=== PATIENT | male | born 1955 | race Caucasian/White ===

== ENCOUNTER 2025-03-12 08:00 | Day surgery (SDC) | payer MEDICARE, OTHER, SELFPAY ==
[2025-03-09 12:36] VITALS: BMI 30.1
[2025-03-12] VITALS (10 sets, daily range): BP systolic 113–149; BP diastolic 75–95; PULSE 68–79; RESP 13–18; TEMP 36.2–36.4; O2SAT 95–99; BMI 28.7
[2025-03-12] MEDS: SODIUM CHLORIDE 0.9% 500 ML 500 ML 20 ML IV (10:12)
[2025-03-12] MEDS: MIDAZOLAM INJ 1 MG/ML VIAL 2 ML (ASD USE ONLY) 2 MG IV (10:18)
[2025-03-12] MEDS: DiphenhydrAMINE INJ 50 MG/ML VIAL 25 MG IV (10:18)
[2025-03-12] MEDS: fentaNYL CIT INJ 50 mCg/ML AMP 2ML (ASD USE ONLY) IV (10:18)
== END 2025-03-12 11:25 | disposition home or self-care (01) ==
PROVIDERS: PCP Family Medicine; Referring Provider Specialist; Visit Provider Specialist
PROC: 0DBE8ZX Excision of Large Intestine, Via Natural or Artificial Opening Endoscopic, Diagnostic (ICD-10-PCS; CPT 45380; principal; 2025-03-12 09:00)
DX: Z12.11 Encounter for screening for malignant neoplasm of colon (principal); D12.8 Benign neoplasm of rectum; K64.9 Unspecified hemorrhoids; K57.30 Diverticulosis of large intestine without perforation or abscess without bleeding; Z90.49 Acquired absence of other specified parts of digestive tract
CPT/HCPCS: 45380; A4649; J1200; J2250; J3010; J7040

== ENCOUNTER 2025-04-30 08:30 | Day surgery (SDC) | payer MEDICARE, OTHER, SELFPAY ==
[2025-04-27 14:29] VITALS: BMI 30.1
[2025-04-30] VITALS (8 sets, daily range): BP systolic 129–148; BP diastolic 59–94; PULSE 69–87; RESP 13–24; TEMP 36.4–36.7; O2SAT 92–98; BMI 30.7
[2025-04-30] MEDS: BENZOCAINE 20% (Hurricaine) SPRAY 1 DOSE TOP (10:37)
[2025-04-30] MEDS: SODIUM CHLORIDE 0.9% 500 ML 500 ML 20 ML IV (10:37)
[2025-04-30] MEDS: DiphenhydrAMINE INJ 50 MG/ML VIAL 25 MG IVP (10:38)
[2025-04-30] MEDS: fentaNYL CIT INJ 50 mCg/ML AMP 2ML (ASD USE ONLY) IVP (10:38)
[2025-04-30] MEDS: MIDAZOLAM INJ 1 MG/ML VIAL 2 ML (ASD USE ONLY) 2 MG IVP (10:38)
== END 2025-04-30 11:20 | disposition home or self-care (01) ==
PROVIDERS: PCP Family Medicine; Referring Provider Specialist; Visit Provider Specialist
PROC: (CPT 43239; principal; 2025-04-30 13:15)
DX: K20.90 Esophagitis, unspecified without bleeding (principal); K22.10 Ulcer of esophagus without bleeding; K29.70 Gastritis, unspecified, without bleeding; K29.50 Unspecified chronic gastritis without bleeding; K31.89 Other diseases of stomach and duodenum
CPT/HCPCS: 43239; J1200; J2250; J3010; J7999; A9270